=== PATIENT | male | born 1970 | race Two or more races ===

== ENCOUNTER 2024-05-10 12:58 | Inpatient (IN) | payer OTHER ==
[~2024-05-10] VITALS: Ht 177.8 cm; Wt 86.3 kg
[~2024-05-10 12:58] MED LIST: ASPI1TAB20 PO; FENO5TAB PO; PANT40TA2 PO
[2024-05-10 13:40] LABS: Basophils # (auto) 0.1 10 ^3/uL (0-0.2); Eosinophils # (auto) 0.1 10 ^3/uL (0-0.8); Hematocrit 38.3 % (41.0-53.0); Hemoglobin 13.6 g/dL (13.5-17.5); Lymphocytes # (auto) 1.7 10 ^3/uL (0.4-5.4); Lymphocytes % (auto) 28.9 % (10.0-50.0); Mean Corpuscular Hemoglobin 31.3 pg (28.0-32.0); Mean Corpuscular Hgb Conc. 35.5 g/dL (32.0-36.0); Mean Corpuscular Volume 88.2 fL (80.0-100.0); Monocytes # (auto) 0.4 10 ^3/uL (0-1.3); Monocytes % (auto) 7.2 % (0.0-12.0); Neutrophils # (auto) 3.5 10 ^3/uL (1.6-8.6); Neutrophils % (auto) 60.9 % (37.0-80.0); Nucleated Red Blood Cells % 0.1 %; Platelet Count (auto) 214 10^3/uL (140-450); Red Blood Cells 4.35 10^6/uL (4.5-5.90); Red Cell Distribution Width 12.7 % (11.8-14.3); White Blood Cell 5.8 10^3/uL (4.4-10.8)
[2024-05-10 13:59] LABS: Alanine Aminotransferase 29 U/L (7-40); Albumin 4.7 g/dL (3.2-4.8); Alkaline Phosphatase 55 U/L (46-116); Anion Gap 11 (5-15); Aspartate Aminotransferase 17 U/L (13-40); BUN/Creatinine Ratio 15.9 (10.0-20.0); Blood Urea Nitrogen 18 mg/dL (9-23); Calcium 10.1 mg/dL (8.7-10.4); Carbon Dioxide 21 mmol/L (20-30); Chloride 108 mmol/L (98-107); Glucose 141 mg/dL (74-106); Potassium 4.4 mmol/L (3.5-5.1); Sodium 140 mmol/L (136-145)
[2024-05-10 14:00] LABS: Bilirubin, Total 0.6 mg/dL (0.2-1.0); Total Protein 7.5 g/dL (5.7-8.2)
[2024-05-10] MEDS ORDERED: HYDROcodone-ACET 5/325MG TAB PO PRN (14:00)
[2024-05-10] MEDS ORDERED: ONDANSETRON HCL 4 MG/2 ML VIAL IV PRN (14:00)
[2024-05-10] MEDS ORDERED: hydrALAZINE HCL 20 MG/ML VL IV PRN (14:00)
[2024-05-10] MEDS ORDERED: DOCUSATE SOD 100 MG CAP PO PRN (14:00)
[2024-05-10] MEDS ORDERED: MORPHINE SULFATE INJ 2 MG/ml SYRG IV PRN ×2 (14:00→15:15)
[2024-05-10 14:14] LABS: Magnesium 1.9 mg/dL (1.6-2.6)
[2024-05-10] MEDS ORDERED: NITROGLYCERIN 0.4 MG SL TAB SL PRN (15:15)
[2024-05-10 16:58] LABS: Urine Bacteria None Seen /hpf (None Seen)
[2024-05-10 17:01] VITALS: PULSE 61; RESP 16; O2SAT 98
[2024-05-10] MEDS: NITROGLYCERIN 0.4 MG SL TAB SL ONE (17:01)
[2024-05-10] MEDS: SODIUM CHLORIDE 0.9% 1,000 ML IV ONE (17:05)
[2024-05-10] MEDS: ASPirin 325 MG TAB PO ONE (17:05)
[2024-05-10 17:08] LABS: Urine Blood Negative /uL (Negative); Urine Clarity Clear (Clear); Urine Color Yellow (Yellow); Urine Mucus FEW (None Seen); Urine Protein, UAD TRACE (Negative); Urine Urobilinogen Normal (Negative); Urine WBC 1 /hpf (0 - 3)
[2024-05-10 17:37] LABS: Amphetamine Screen, Urine Neg (NEGATIVE)
[2024-05-10 17:39] LABS: Barbiturate Scree,Urine Neg (NEGATIVE); Benzodiazephine Screen, Urine Neg (NEGATIVE); Cocaine Screen, Urine Neg (NEGATIVE); Opiate Scree,Urine Neg (NEGATIVE); Phencyclidine Screen, Urine Neg (NEGATIVE)
[2024-05-10 17:40] LABS: Cannabinoid Screen, Urine Neg (NEGATIVE)
[2024-05-10] MEDS: SODIUM CHLORIDE 0.9% 1,000 ML IV SCH (18:42)
[2024-05-10 20:14] VITALS: PULSE 64; RESP 20; O2SAT 95
[2024-05-10 21:00] VITALS: BP 114/64; PULSE 64; RESP 20; TEMP 98.5; O2SAT 95
[2024-05-10] MEDS: ATORVASTATIN 20 MG TAB PO SCH (21:26)
[2024-05-11] VITALS (8 sets, daily range): BP systolic 95–127; BP diastolic 54–71; PULSE 53–63; RESP 16–22; TEMP 97.5–98.1; O2SAT 92–100
[2024-05-11] MEDS ORDERED: TAMS1CAP25 PO (03:25)
[2024-05-11] MEDS ORDERED: CHOL20007 OR (03:25)
[2024-05-11 06:31] LABS: Basophils # (auto) 0.1 10 ^3/uL (0-0.2); Basophils % (auto) 1.5 % (0.0-2.0); Eosinophils # (auto) 0.2 10 ^3/uL (0-0.8); Eosinophils % (auto) 4.4 % (0.0-7.0); Hematocrit 36.6 % (41.0-53.0); Hemoglobin 12.9 g/dL (13.5-17.5); Lymphocytes # (auto) 1.8 10 ^3/uL (0.4-5.4); Lymphocytes % (auto) 35.2 % (10.0-50.0); Mean Corpuscular Hemoglobin 31.7 pg (28.0-32.0); Mean Corpuscular Hgb Conc. 35.3 g/dL (32.0-36.0); Mean Corpuscular Volume 89.6 fL (80.0-100.0); Monocytes # (auto) 0.4 10 ^3/uL (0-1.3); Monocytes % (auto) 8.6 % (0.0-12.0); Neutrophils # (auto) 2.6 10 ^3/uL (1.6-8.6); Neutrophils % (auto) 50.3 % (37.0-80.0); Platelet Count (auto) 185 10^3/uL (140-450); Red Blood Cells 4.08 10^6/uL (4.5-5.90); Red Cell Distribution Width 12.8 % (11.8-14.3); White Blood Cell 5.2 10^3/uL (4.4-10.8)
[2024-05-11 06:32] LABS: Alanine Aminotransferase 22 U/L (7-40); Alkaline Phosphatase 43 U/L (46-116); Anion Gap 8 (5-15); Aspartate Aminotransferase 19 U/L (13-40); BUN/Creatinine Ratio 12.3 (10.0-20.0); Blood Urea Nitrogen 13 mg/dL (9-23); Carbon Dioxide 23 mmol/L (20-30); Chloride 111 mmol/L (98-107); Glucose 125 mg/dL (74-106); Potassium 4.2 mmol/L (3.5-5.1); Sodium 142 mmol/L (136-145)
[2024-05-11 06:33] LABS: Bilirubin, Total 0.5 mg/dL (0.2-1.0); Total Protein 6.7 g/dL (5.7-8.2)
[2024-05-11] MEDS: PANTOPRAZOLE 40 MG/10 ML VIAL INJ IV SCH (09:49)
[2024-05-11] MEDS: ASPirin 81 mg TAB PO SCH (09:49)
[2024-05-11] MEDS: ACETAMINOPHEN 325 MG TAB PO PRN (21:39)
[2024-05-12] VITALS (8 sets, daily range): BP systolic 116–130; BP diastolic 62–74; PULSE 53–62; RESP 15–18; TEMP 97.9–98.9; O2SAT 93–99
[2024-05-12 10:56] LABS: Hepatitis B Surface Antigen Negative (Negative)
[2024-05-12 11:17] LABS: Hepatitis C Antibody Negative (Negative)
[2024-05-13 05:00] VITALS: BP 132/72; PULSE 54; RESP 17; TEMP 98.6; O2SAT 97
[2024-05-13 06:14] LABS: Basophils # (auto) 0.1 10 ^3/uL (0-0.2); Eosinophils # (auto) 0.3 10 ^3/uL (0-0.8); Eosinophils % (auto) 4.6 % (0.0-7.0); Hematocrit 37.5 % (41.0-53.0); Hemoglobin 13.3 g/dL (13.5-17.5); Lymphocytes # (auto) 1.6 10 ^3/uL (0.4-5.4); Lymphocytes % (auto) 27.6 % (10.0-50.0); Mean Corpuscular Hemoglobin 31.1 pg (28.0-32.0); Mean Corpuscular Hgb Conc. 35.6 g/dL (32.0-36.0); Mean Corpuscular Volume 87.5 fL (80.0-100.0); Monocytes # (auto) 0.5 10 ^3/uL (0-1.3); Monocytes % (auto) 8.5 % (0.0-12.0); Neutrophils # (auto) 3.4 10 ^3/uL (1.6-8.6); Neutrophils % (auto) 58.3 % (37.0-80.0); Platelet Count (auto) 191 10^3/uL (140-450); Red Blood Cells 4.28 10^6/uL (4.5-5.90); Red Cell Distribution Width 12.8 % (11.8-14.3); White Blood Cell 5.8 10^3/uL (4.4-10.8)
[2024-05-13 06:24] LABS: Chloride 110 mmol/L (98-107); Potassium 3.6 mmol/L (3.5-5.1); Sodium 141 mmol/L (136-145)
[2024-05-13 06:25] LABS: Anion Gap 5 (5-15); Carbon Dioxide 26 mmol/L (20-30)
[2024-05-13 06:26] LABS: Calcium 9.5 mg/dL (8.7-10.4)
[2024-05-13 06:30] LABS: Blood Urea Nitrogen 10 mg/dL (9-23); Glucose 125 mg/dL (74-106); Triglycerides 157 mg/dL (< 150)
[2024-05-13 06:31] LABS: LDL Cholesterol 80 mg/dL (< 100)
[2024-05-13 06:32] LABS: Cholesterol 134 mg/dL (< 200); HDL Cholesterol 30 mg/dL (40-59)
[2024-05-13 08:00] VITALS: PULSE 54; PULSE 60; RESP 17; O2SAT 99
[2024-05-13] MEDS: ENOXAPARIN SOD 40 MG/0.4 ML SYRINGE SC SCH (09:41)
[2024-05-13 10:34] VITALS: BP 118/75; PULSE 53; RESP 16; TEMP 98.3; O2SAT 96
[2024-05-13 14:49] VITALS: BP 119/73; PULSE 59; RESP 17; TEMP 98.3; O2SAT 98
[2024-05-13 17:20] VITALS: BP 111/59; PULSE 64; RESP 16; TEMP 98.2; O2SAT 96
[2024-05-13 20:00] VITALS: PULSE 71
[2024-05-14 08:00] VITALS: PULSE 58; RESP 20
[2024-05-14 09:48] VITALS: BP 130/79; PULSE 55; RESP 18; TEMP 98.8; O2SAT 98
[2024-05-14 14:45] VITALS: BP 110/61
[2024-05-14 15:13] VITALS: BP 131/79; PULSE 61; RESP 17; TEMP 98.7; O2SAT 97
== END 2024-05-14 15:22 | disposition home or self-care (01) | DRG 392 ==
LOC: ER 12:58 → TELE 15:16 → TELE-E-ADS 18:05
PROVIDERS: ADMIT Nurse Practitioner Family; ATTEND Internal Medicine
DX: K21.9 Gastro-esophageal reflux disease without esophagitis (principal); R51.9 Headache, unspecified; I10 Essential (primary) hypertension; N40.0 Benign prostatic hyperplasia without lower urinary tract symptoms; R10.13 Epigastric pain; E78.5 Hyperlipidemia, unspecified; Z83.3 Family history of diabetes mellitus; Z82.49 Family history of ischemic heart disease and other diseases of the circulatory system; Z87.891 Personal history of nicotine dependence
CPT/HCPCS: 36415; 70450; 71045; 80048; 80053; 80061; 80307; 81001; 82962; 83690; 83735; 84484; 85025; 86803; 87340; 93005; 93306; G0378; J2470

== ENCOUNTER 2025-02-24 07:15 | Day surgery (SDC) | payer OTHER ==
[2025-02-22 10:10] LABS: Urine Bacteria None Seen /hpf (None Seen)
[2025-02-22 10:17] LABS: Basophils # (auto) 0.1 10 ^3/uL (0-0.2); Basophils % (auto) 1.7 % (0.0-2.0); Eosinophils # (auto) 0.2 10 ^3/uL (0-0.8); Eosinophils % (auto) 3.9 % (0.0-7.0); Hematocrit 41.2 % (41.0-53.0); Hemoglobin 14.6 g/dL (13.5-17.5); Lymphocytes # (auto) 1.8 10 ^3/uL (0.4-5.4); Lymphocytes % (auto) 32.7 % (10.0-50.0); Mean Corpuscular Hemoglobin 31.5 pg (28.0-32.0); Mean Corpuscular Hgb Conc. 35.3 g/dL (32.0-36.0); Mean Corpuscular Volume 89.2 fL (80.0-100.0); Monocytes # (auto) 0.4 10 ^3/uL (0-1.3); Monocytes % (auto) 7.7 % (0.0-12.0); Neutrophils # (auto) 3.1 10 ^3/uL (1.6-8.6); Nucleated Red Blood Cells % 0.1 %; Platelet Count (auto) 182 10^3/uL (140-450); Red Blood Cells 4.62 10^6/uL (4.5-5.90); Red Cell Distribution Width 12.9 % (11.8-14.3); White Blood Cell 5.7 10^3/uL (4.4-10.8)
[2025-02-22 10:21] LABS: Urine Blood Negative /uL (Negative); Urine Clarity Clear (Clear); Urine Color Yellow (Yellow); Urine Mucus FEW (None Seen); Urine Protein, UAD Negative (Negative); Urine Specific Gravity 1.025 (1.001-1.035); Urine Squamous Epithelial Cell None Seen /hpf (<5); Urine Urobilinogen Normal (Negative); Urine WBC < 1 /HPF (0-3)
[2025-02-22 10:31] LABS: INR 1.01 (0.9-1.15); Partial Thromboplastin Time 27.2 SEC (24.5-34.5); Prothrombin Time 10.7 sec (9.3-11.8)
[2025-02-22 10:46] LABS: Alanine Aminotransferase 17 U/L (7-40); Alkaline Phosphatase 64 U/L (46-116); Anion Gap 8 (5-15); Aspartate Aminotransferase 17 U/L (<34); BUN/Creatinine Ratio 14.8 (10.0-20.0); Blood Urea Nitrogen 17 mg/dL (9-23); Calcium 10.1 mg/dL (8.7-10.4); Carbon Dioxide 28 mmol/L (20-31); Chloride 106 mmol/L (98-107); Potassium 4.6 mmol/L (3.5-5.1); Sodium 142 mmol/L (136-145); Total Protein 7.8 g/dL (5.7-8.2)
[2025-02-22 10:47] LABS: Bilirubin, Total 0.8 mg/dL (0.2-1.0)
[2025-02-22 10:54] LABS: Albumin 4.8 g/dL (3.2-4.8); Glucose 122 mg/dL (74-106)
[~2025-02-24] VITALS: Ht 177.8 cm; Wt 81.6 kg
[~2025-02-24 07:15] MED LIST changes: +CHOL20007 OR; +TAMS1CAP25 PO
[2025-02-24] MEDS ORDERED: ROCURONIUM 10MG/ML 10ML VIAL IV ONE (07:16)
[2025-02-24] MEDS ORDERED: ceFAZolin 2 GM/D5W50ml 50 ML IV ONE (07:36)
[2025-02-24] MEDS ORDERED: MIDAZOLAM HCL 2MG/2ML 2ml VIAL (1mg/ml) ONE (09:46)
[2025-02-24] MEDS ORDERED: fentaNYL CITRATE 100 MCG/2 ML VL ONE (09:46)
[2025-02-24] MEDS ORDERED: PROPOFOL 10 MG/ML 20 ML IV ONE (09:47)
[2025-02-24] MEDS ORDERED: ONDANSETRON HCL 4 MG/2 ML VIAL ONE (10:18)
[2025-02-24] MEDS ORDERED: METOCLOPRAMIDE HCL 5MG/ml INJ 2ml VIAL ONE (10:18)
[2025-02-24] MEDS ORDERED: DexAMETHasone SOD PHOS 10MG/1ML VIAL INJ ONE (10:18)
[2025-02-24] MEDS ORDERED: LIDOCAINE 2% (LOCAL ANESTH.) PF 5ml SDV ONE (10:18)
[2025-02-24] MEDS ORDERED: EPINEPHrine HCL 1 MG/1 ML AMP ONE (10:29)
[2025-02-24] MEDS ORDERED: HYDROmorphone HCL 2 MG/ML VL/or syr ONE (10:29)
[2025-02-24] MEDS ORDERED: TRANEXAMIC ACID 10 ML ONE (10:37)
[2025-02-24] MEDS ORDERED: SUGAMMADEX 200mg/2ml Vial (100MG/ML) IV ONE (11:30)
--- NOTE | 2025-02-24 11:46 | DVHOP2 ---
Operative Report - 2 Report Details Date: 02/24/25 Preop Diagnosis: Right shoulder rotator cuff tear Postop Diagnosis: Right shoulder rotator cuff tear, ankylosis, intra-articular synovitis Surgeon: Tony Prince MD Anesthesiologist: Cem Shay CRNA Anesthesia: General Implant: Arthrex SwiveLock 4.75 mm Bio[employer]posite Consent: The patient was informed of the risks and benefits of the procedure. These include but are not limited to complications of anesthesia, postoperative infection, incomplete relief of symptoms, recurrence of symptoms, damage to blood vessels, nerves and tendons, deep venous thrombosis, pulmonary embolism and possible need for repeat surgery in the future. Complications: None Estimated Blood Loss: 10 cc Fluids: See anesthesia record Findings: On examination anesthesia he had very limited flexion to only 140 abduction 140 external rotation 40 no instability. Arthroscopically he did have some scuffing of the humeral head, there was marked synovitis in the glenohumeral joint, biceps was intact and he was quite tight and it was very difficult to to enter the scope into the glenohumeral space. I was able to identify a small supraspinatus tear from the glenohumeral joint. Indications for Surgery: Right shoulder pain and weakness with MRI confirmed rotator cuff tear Name of Procedure Performed Right shoulder arthroscopy, rotator cuff repair, synovectomy/debridement extensive Procedure Details Procedure Details: I 1st entered the joint with spinal needle injected 30 cc of normal saline. I then made my posterior portal and began my inspection of the glenohumeral joint. I then made an auxiliary portal lateral to the acromion. I used this approach because it would have been very difficult to enter anterior from the rotator in terval as the patient was markedly restricted. I used a shaver and radiofrequency device to perform synovectomy and some limited capsular release. I redirected the posterior cannula into the subacromial space and began inspection and from there I made another lateral portal with spinal needle for guidance. I then performed subacromial bursectomy with radiofrequency device and shaver. I had to go back and forth between intra-articular and subacromial placement of my viewing portal to be able to identify the tear which was quite anterior. In addition, I was having quite a bit of difficulty with bleeding in the subacromial space. Eventually I was able to identify the tear from the subacromial space. I inserted a passport cannula in the lateral portal. I used a shaver and radiofrequency device to debride the rotator cuff foot print and then used a bur to roughen up the bone. I then passed inverted mattress FiberTape suture and fixed it to the greater tuberosity with a self punching SwiveLock anchor. FiberTapes were cut I did attempt. I removed the anchoring stitch and passing stitch. I suctioned the space as dry as possible and closed my portal sites with nylon. The wounds were dressed sterilely and shoulder immobilizer applied. Patient was brought to the recovery room in stable condition. Condition Stable Disposition Home TONY PRINCE MD Feb 24, 2025 11:46
[2025-02-24] MEDS ORDERED: HYDROmorphone HCL 2 MG/ML VL/or syr IV PRN (12:15)
[2025-02-24] MEDS ORDERED: METOCLOPRAMIDE HCL 5MG/ml INJ 2ml VIAL IV ONE (12:15)
[2025-02-24] MEDS ORDERED: ONDANSETRON HCL 4 MG/2 ML VIAL IV ONE (12:15)
[2025-02-24] MEDS ORDERED: KETOROLAC TROMETH 30 MG/ML 1ML VIAL IV ONE (12:15)
[2025-02-24 12:45] VITALS: BP 137/72; PULSE 76; RESP 14; O2SAT 98
== END 2025-02-24 12:49 | disposition home or self-care (01) ==
LOC: SUR 07:15 → EDUNIT# 09:00 → SUR 12:49
PROVIDERS: ATTEND Orthopaedic Surgery
DX: M75.121 Complete rotator cuff tear or rupture of right shoulder, not specified as traumatic (principal); M65.911 Unspecified synovitis and tenosynovitis, right shoulder; M24.611 Ankylosis, right shoulder; E78.5 Hyperlipidemia, unspecified; Z98.890 Other specified postprocedural states
CPT/HCPCS: 29826; 29827; 36415; 64415; 80053; 81001; 85025; 85610; 85730; C1713; J0171; J0690; J1100; J1171; J1885; J2003; J2250; J2405; J2704; J2765; J3010; A4565